=== PATIENT | male | born 1985 | race Caucasian/White ===

== ENCOUNTER 2020-01-15 12:13 | Emergency (ER) | payer MEDICAID ==
--- NOTE | 2020-01-15 12:28 | EDM.PDOC ---
ED HPI GENERAL MEDICAL PROBLEM - General Chief Complaint: Lower Extremity Injury/Pain Stated Complaint: INJURY RT ANKLE Time Seen by Provider: 01/15/20 12:28 Source of Information: Reports: Patient History Limitations: Reports: No Limitations - History of Present Illness INITIAL COMMENTS - FREE TEXT/NARRATIVE: HISTORY AND PHYSICAL: History of present illness: Patient is a 34-year-old male presents to the ED with complaint of right ankle injury. patient states that about an hour prior to arrival to the ED he stepped in a hole twisting his ankle and hearing a pop. He states he has been able to the very little pressure on it and has significant pain when he does but with on it. He denies proximal knee or hip pain or distal numbness or tingling. Review of systems: As per history of present illness and below otherwise all systems reviewed and negative. Past medical history: As per history of present illness and as reviewed below otherwise noncontributory. Surgical history: As per history of present illness and as reviewed below otherwise noncontributory. Social history: No reported history of drug or alcohol abuse. Family history: As per history of present illness and as reviewed below otherwise noncontributory. Physical exam: General: Patient sitting comfortably in no acute distress and nontoxic appearing HEENT: Atraumatic, normocephalic, pupils reactive, negative for conjunctival pallor or scleral icterus, mucous membranes moist, throat clear, neck supple, nontender, trachea midline. No meningeal signs. Lungs: Clear to auscultation, breath sounds equal bilaterally, chest nontender. Heart: S1S2, regular, negative for clicks, rubs, or overt murmur. Abdomen: Soft, nondistended, nontender. Negative for masses or hepatosplenomegaly. Negative for costovertebral tenderness. No rigidity, rebound , guarding. Pelvis: Stable nontender. Genitourinary: Deferred. Rectal: Deferred. Extremities: no obvious deformity and skin is intact. There is mild swelling to the right lateral malleolus with some ecchymosis to the lateral aspect of the right foot as well as slight erythema and ecchymosis to the top of the foot. negative for cords or calf pain. Neurovascular unremarkable. Neuro: Awake, alert, oriented. Cranial nerves II through XII unremarkable. Cerebellum unremarkable. Motor and sensory unremarkable throughout. Exam nonfocal. Notes: x-ray shows avulsion fracture to the right ankle. Patient given custom post mold splint placed by nursing staff and given crutches and advised no weight bearing and follow up with orthopedics. Diagnostics: x-ray right ankle and foot Therapeutics: Splint and crutches Toradol IM Prescriptions: Impression: Right ankle avulsion fracture Plan: 1. Ice, elevate, and motrin or tylenol as needed. You may take tramadol as needed for severe pain. 2. Follow up with orthopedics, please call the number provided to schedule an appointment 3. Return to ED as needed as discussed Definitive disposition and diagnosis as appropriate pending reevaluation and review of above. right ankle Pain Score (Numeric/FACES): 6 - Related Data Allergies Allergy/AdvReac Type Severity Reaction Status Date / Time No Known Allergies Allergy Verified 01/15/20 12:29 Home Meds: Home Meds . [No Known Home Meds] 01/15/20 [History] Review of Systems - Review of Systems Review Of Systems: Comprehensive ROS is negative, except as noted in HPI. ED EXAM, GENERAL - Physical Exam Exam: See Below (see dictation) Course - Vital Signs Last Recorded V/S: Last Vital Signs Temp 97.1 F 01/15/20 12:26 Pulse 89 01/15/20 12:26 Resp 18 01/15/20 12:26 BP 187/72 H 01/15/20 12:26 Pulse Ox 98 01/15/20 12:26 - Orders/Labs/Meds Orders: Active Orders 24 hr Category Date Time Status Communication Order [RC] STAT Care 01/15/20 13:20 Active DME for Discharge [COMM] Stat Oth 01/15/20 13:21 Ordered Meds: Medications Discontinued Medications Generic Name Dose Route Start Last Admin Trade Name Freq PRN Reason Stop Dose Admin Ketorolac Tromethamine 60 mg 01/15/20 13:22 01/15/20 13:40 Toradol IM 01/15/20 13:23 60 mg ONETIME ONE Administration Departure - Departure Time of Disposition: 14:08 Disposition: Home, Self-Care 01 Condition: Good Clinical Impression: Avulsion fracture of right ankle - Discharge Information Instructions: Cast or Splint Care, Adult, [id number], Ankle Fracture Referrals: PCP,None [Primary Care Provider] - Narendra Roberto DO [Physician] - Forms: ED Department Discharge Additional Instructions: The following information is given to patients seen in the emergency department who are being discharged to home. This information is to outline your options for follow-up care. We provide all patients seen in our emergency department with a follow-up referral. The need for follow-up, as well as the timing and circumstances, are variable depending upon the specifics of your emergency department visit. If you don't have a primary care physician on staff, we will provide you with a referral. We always advise you to contact your personal physician following an emergency department visit to inform them of the circumstance of the visit and for follow-up with them and/or the need for any referrals to a consulting specialist. The emergency department will also refer you to a specialist when appropriate. This referral assures that you have the opportunity for follow-up care with a specialist. All of these measure are taken in an effort to provide you with optimal care, which includes your follow-up. Under all circumstances we always encourage you to contact your private physician who remains a resource for coordinating your care. When calling for follow-up care, please make the office aware that this follow-up is from your recent emergency room visit. If for any reason you are refused follow-up, please contact the [facility] Emergency Department at and asked to speak to the emergency department charge nurse. [facility] [address] [place] [id number] [address] [address] [facility] Professional Building [address] [place] [address], [address] [place] [address] 1. Ice, elevate, and motrin or tylenol as needed. You may take tramadol as needed for severe pain. 2. Follow up with orthopedics, please call the number provided to schedule an appointment 3. Return to ED as needed as discussed Sepsis Event Note - Focused Exam Vital Signs: Vital Signs Temp Pulse Resp BP Pulse Ox 05/20/20 12:26 97.1 F 89 18 187/72 H 98 Date Exam was Performed: 01/15/20 Time Exam was Performed: 14:07 - My Orders Last 24 Hours: My Active Orders 01/15/20 13:20 Communication Order [RC] STAT 01/15/20 13:21 DME for Discharge [COMM] Stat - Assessment/Plan Last 24 Hours: My Active Orders 01/15/20 13:20 Communication Order [RC] STAT 01/15/20 13:21 DME for Discharge [COMM] Stat
--- NOTE | 2020-01-15 13:11 | CR ---
Right ankle: 3 views of the right ankle were obtained. Comparison: No previous ankle study. Small bony densities are noted off the anterior dorsal talus as well as off the dorsal navicular bone. Uncertain if these are due to acute cortical avulsion fractures or are old. Ankle mortise is symmetric. No additional fracture or other bony abnormality is appreciated. Impression: 1. Small bony densities off the anterior dorsal talus and dorsal navicular bone as noted above. 2. No additional fracture is seen. Diagnostic code #3 This report was dictated in MDT
--- NOTE | 2020-01-15 13:11 | CR ---
Right foot: 2 views of the right foot were obtained. Comparison: No previous study. Slight degenerative change noted at the tarsometatarsal joint of the 1st digit. Small bony densities as described on ankle study noted off the anterior dorsal talus and dorsal navicular bone. No additional fracture or other bony abnormality is appreciated. Impression: 1. Small cortical fractures as described on ankle study. 2. Degenerative change within the 1st tarsometatarsal joint. Diagnostic code #3 This report was dictated in MDT
[2020-01-15] MEDS ORDERED: Ketorolac 60 MG/2 ML SDV IM ONE (13:22)
== END 2020-01-15 14:17 | disposition home or self-care (01) ==
LOC: MW.ED 12:13
DX: S82.891A Other fracture of right lower leg, initial encounter for closed fracture (principal); X50.1XXA Overexertion from prolonged static or awkward postures, initial encounter
CPT/HCPCS: 29515; 73610; 73620; 96372; 99283; J1885